=== PATIENT | male | born 1990 | race Two or more races ===

== ENCOUNTER 2018-07-03 22:52 | Emergency (ER) | payer BC ==
[2018-07-03] MEDS ORDERED: NORMAL SALINE 1000 ML 1,000 ML IV ONE (23:29)
[2018-07-03] MEDS ORDERED: ONDANSETRON HCL INJ/PF 4 MG/2 ML SDV IV ONE (23:29)
--- NOTE | 2018-07-03 23:31 | ER Document Report ---
ED Medical Screen (RME) - General Chief Complaint: Abdominal Pain Stated Complaint: ABDOMINAL PAIN Time Seen by Provider: 07/03/18 23:18 Notes: 27-year-old male with chief complaint of a sharp pain in his upper abdominal area up into his chest, he has had multiple vomiting and diarrhea since yesterday, occasional coughing episodes. Denies hematochezia, fever. States earlier he stood up and felt lightheaded. TRAVEL OUTSIDE OF THE [place] IN LAST 30 DAYS: No - Related Data Allergies/Adverse Reactions: No Known Allergies Allergy (Unverified 05/10/15 04:11) Physical Exam - Respiratory Respiratory status: No respiratory distress Breath sounds: Normal. No: Decreased air movement, Wheezing - Abdominal Tenderness: Tender - Epigastric pain noted, remaining abdomen benign except for mild left lower quadrant pain
[2018-07-04 00:15] LABS: ALANINE AMINOTRANSFERASE 34 U/L (21-72); ALBUMIN 4.6 g/dL (3.5-5.0); ALKALINE PHOSPHATASE 72 U/L (38-126); ANION GAP 10 (5-19); ASPARTATE AMINO TRANSFERASE 28 U/L (17-59); BILIRUBIN,DIRECT 0.4 mg/dL (0.0-0.4); BILIRUBIN,TOTAL 0.7 mg/dL (0.2-1.3); BLOOD UREA NITROGEN 11 mg/dL (7-20); CALCIUM 9.3 mg/dL (8.4-10.2); CARBON DIOXIDE 27 mmol/L (22-30); CHLORIDE 101 mmol/L (98-107); GLUCOSE 96 mg/dL (75-110); LIPASE 85.7 U/L (23-300); POTASSIUM 4.4 mmol/L (3.6-5.0); SODIUM 137.5 mmol/L (137-145); TOTAL PROTEIN 7.7 g/dL (6.3-8.2)
[2018-07-04] MEDS ORDERED: FAMOTIDINE 20 MG TABLET PO ONE (00:38)
--- NOTE | 2018-07-04 00:39 | ER Document Report ---
ED General - General Chief Complaint: Abdominal Pain Stated Complaint: ABDOMINAL PAIN Time Seen by Provider: 07/03/18 23:18 Notes: Patient is a 27-year-old male without chronic medical problems who presents with 1 week of intermittent epigastric and right upper quadrant abdominal pain with associated nausea and vomiting and 2-3 days of loose stools. The patient reports that the pain is a cramping, aching, moderate to severe upper abdominal pain. States that it is worsened with certain types of food such as when he tried to eat [employer] yesterday and resulted in vomiting. Nothing improves his symptoms. No history of similar symptoms in the past. He has not had fever, headache, neck pain, body aches, cough or shortness of breath. He has not seen his primary doctor regarding today's concerns. No history of abdominal surgeries. TRAVEL OUTSIDE OF THE [place] IN LAST 30 DAYS: No - Related Data Allergies/Adverse Reactions: No Known Allergies Allergy (Unverified 05/10/15 04:11) Past Medical History - General Information source: Patient - Social History Smoking Status: Former Smoker Frequency of alcohol use: Social Drug Abuse: None Lives with: Spouse/Significant other Family History: Reviewed & Not Pertinent Patient has suicidal ideation: No Patient has homicidal ideation: No Renal/ Medical History: Denies: Hx Peritoneal Dialysis Review of Systems - Review of Systems Notes: Constitutional: Negative for fever. HENT: Negative for sore throat. Eyes: Negative for visual changes. Cardiovascular: Negative for chest pain. Respiratory: Negative for shortness of breath. Gastrointestinal: Positive for abdominal pain, vomiting and diarrhea Genitourinary: Negative for dysuria. Musculoskeletal: Negative for back pain. Skin: Negative for rash. Neurological: Negative for headaches, weakness or numbness. 10 point ROS negative except as marked above and in HPI. Physical Exam - Vital signs Vitals: Temp Pulse Resp BP Pulse Ox 98.8 F 85 14 116/66 96 07/03/18 22:53 07/03/18 22:53 07/03/18 22:53 07/03/18 22:53 07/03/18 22:53 Interpretation: Normal Notes: PHYSICAL EXAMINATION: GENERAL: Well-appearing, well-nourished and in no acute distress. HEAD: Atraumatic, normocephalic. EYES: Pupils equal round and reactive to light, extraocular movements intact, sclera anicteric, conjunctiva are normal. ENT: nares patent, oropharynx clear without exudates. Mild dry mucous membranes. NECK: Normal range of motion, supple without lymphadenopathy LUNGS: Breath sounds clear to auscultation bilaterally and equal. No wheezes rales or rhonchi. HEART: Regular rate and rhythm without murmurs ABDOMEN: Soft, minimal tenderness on palpation of the right upper quadrant and epigastrium but no other localized areas of discomfort, normoactive bowel sounds. No guarding, no rebound. No masses appreciated. EXTREMITIES: Normal range of motion, no pitting or edema. No cyanosis. NEUROLOGICAL: No focal neurological deficits. Moves all extremities spontaneously and on command. PSYCH: Normal mood, normal affect. SKIN: Warm, Dry, normal turgor, no rashes or lesions noted. Course - Re-evaluation Re-evalutation: 07/04/18 00:39 Patient presents with epigastric abdominal pain with associated reflux symptoms most consistent with likely gastritis. Patient is also had some loose stools over the last several days but has not been eating solid food. Patient has no focal abdominal tenderness on examination. Right upper quadrant ultrasound does not demonstrate any evidence of acute cholecystitis or cholelithiasis. Lipase is normal. No LFT changes. Based on history and exam, I do not suspect ACS, pulmonary embolus, SBO, mesenteric ischemia, acute pancreatitis, biliary pathology, or an abdominal aortic dissection. Will start on famotidine, Carafate, Zofran. I have also prescribed a wait and see prescription for ciprofloxacin should patient's symptoms not resolve in the next 48 hours for e mpiric treatment of a possible enterocolitis. At this time will discharge with return precautions and follow-up recommendations. Verbal discharge instructions given a the bedside and opportunity for questions given. Medication warnings reviewed. Patient is in agreement with this plan and has verbalized understanding of return precautions and the need for primary care follow-up in the next 24-72 hours. - Vital Signs Vital signs: Temp Pulse Resp BP Pulse Ox 98.1 F 71 16 111/66 97 07/04/18 01:59 07/04/18 01:59 07/04/18 01:59 07/04/18 01:59 07/04/18 01:59 - Laboratory Result Diagrams: 07/03/18 23:47 - Diagnostic Test Radiology reviewed: Reports reviewed Discharge - Discharge Clinical Impression: Upper abdominal pain, Fatty liver Nausea and vomiting Qualifiers: Vomiting type: unspecified Vomiting Intractability: non-intractable Qualified Code(s): R11.2 - Nausea with vomiting, unspecified Diarrhea Qualifiers: Diarrhea type: unspecified type Qualified Code(s): R19.7 - Diarrhea, unspecified Condition: Good Disposition: HOME, SELF-CARE Additional Instructions: Your symptoms appear to be most consistent with stomach or upper intestinal irritation. Please begin taking famotidine 40 mg in the morning and 40 mg at night. Take Carafate as prescribed. you may also take medicine such as Pepto- Bismol or Tums to assist with your pain. Please return to emergency department immediately if you have worsening of your pain, shortness of breath, vomiting, become unable to exert yourself due to pain or difficulty breathing, you pass out, or have any pain that radiates into your arms, jaw, or back. Please also return if you have any additional symptoms that are concerning to you. If you are not having resolution of your symptoms in the next 48 hours, please begin taking the ciprofloxacin as prescribed for treatment of a possible bacterial enterocolitis which could be an alternative cause of your symptoms. As we have discussed, the most important thing is lifestyle changes. You need to avoid smoking, sodas, tea, coffee, alcohol, spicy foods, and acidic foods such as citrus fruits, tomato based products, berries, and most fruit juices. Prescriptions: Ciprofloxacin HCl [Cipro 500 mg Tablet] 500 mg PO BID #6 tablet Famotidine 40 mg PO BID #60 tablet Sucralfate [Carafate 1 gm Tablet] 1 gm PO ACHS #120 tablet
--- NOTE | 2018-07-04 01:29 | RADIOLOGY REPORT (SQ) ---
EXAM DESCRIPTION: US ABDOMEN LIMITED COMPLETED DATE/TME: 07/04/2018 00:38 CLINICAL HISTORY: 27 years, Male, ruq pain, vomiting COMPARISON: None. TECHNIQUE: Limited right upper quadrant ultrasound LIMITATIONS: None. FINDINGS: Echogenic appearance to the liver suggesting fatty infiltrative change. No focal liver lesions. No gallstones. Negative sonographic Le sign. No gallbladder wall thickening or pericholecystic fluid. CBD measures 1.2 mm. Visualized abdominal aorta and inferior vena cava are unremarkable. Visualized right kidney is unremarkable. There is no ascites. Visualized pancreas unremarkable IMPRESSION: Fatty infiltrative change to the liver. Remainder unremarkable copyright 2010 [employer]- All Rights Reserved
[2018-07-04] MEDS ORDERED: ONDANSETRON ODT 4 MG TAB (6 TAB/ER DISP) PO PRN (01:43)
[2018-07-04 01:59] VITALS: BP 111/66
--- NOTE | 2018-07-04 08:57 | EKG REPORT ---
SEVERITY:- ABNORMAL ECG - SINUS RHYTHM ATRIAL PREMATURE COMPLEX FIRST DEGREE AV BLOCK LEFT AXIS DEVIATION : Confirmed by: Octavio Gooden MD 04-Jul-2018 08:56:38
== END 2018-07-04 01:59 | disposition home or self-care (01) ==
LOC: ER 22:52
DX: R10.13 Epigastric pain (principal); R10.11 Right upper quadrant pain; K76.0 Fatty (change of) liver, not elsewhere classified; R11.2 Nausea with vomiting, unspecified; R19.7 Diarrhea, unspecified; Z87.891 Personal history of nicotine dependence
CPT/HCPCS: 93005; 99284; 96361; 96374; 36415; 83690; 80053; 76705; 93010; J2405; J7030